=== PATIENT | male | born 1995 | race Two or more races ===

== ENCOUNTER 2019-12-01 13:11 | Emergency (ER) | payer BC ==
--- NOTE | 2019-12-01 13:39 | UC ---
Lower Extremity/Ankle HPI - HPI Summary HPI Summary: 24 yo male presents with cough. He tells me that for the past 2 months he has had a dry cough. 3 days ago he had body aches and felt very tired with increased cough and post nasal drip. This lasted for 24 hours and resolved, but dry cough persists. 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 Nothing OTC for symptoms. Denies known contact with positive COVID. Denies fever, sinus symptoms, sore throat, SOB, chest pain, abdominal pain, n/v. - History of Current Complaint Stated Complaint: NEEDS WORK NOTE Time Seen by Provider: 12/01/19 13:37 Hx Obtained From: Patient Onset/Duration: Sudden Onset Severity Initially: Mild Severity Currently: Mild Pain Intensity: 2 Pain Scale Used: 0-10 Numeric - Allergies/Home Medications Allergies/Adverse Reactions: Allergies Allergy/AdvReac Type Severity Reaction Status Date / Time No Known Allergies Allergy Verified 12/01/19 13:44 Home Medications: Home Medications Omeprazole 20 mg PO DAILY 06/26/19 [History Confirmed 06/26/19] PMH/Surg Hx/FS Hx/Imm Hx - Additional Past Medical History Additional PMH: Anderson's esophagus - Surgical History Surgical History: None - Family History Known Family History: Positive: None - Social History Occupation: Employed Full-time Lives: With Family Alcohol Use: Weekly Alcohol Amount: 3-4 DRINKS PER WEEK Substance Use Type: None Smoking Status (MU): Never Smoked Tobacco Review of Systems All Other Systems Reviewed And Are Negative: No Constitutional: Positive: Negative Skin: Positive: Negative Eyes: Positive: Negative ENT: Positive: Negative Respiratory: Positive: Cough Cardiovascular: Positive: Negative Gastrointestinal: Positive: Negative Physical Exam - Summary Physical Exam Summary: GENERAL: NAD. WDWN. No pain distress. SKIN: No rashes, sores, lesions, or open wounds. HEENT: Head: AT/NC Eyes: EOM intact. Conjunctiva clear without inflammation or discharge. Ears: Hearing grossly normal. TMs intact, no bulging, erythema, or edema. Nose: Nasal mucosa pink and moist. NTTP maxillary and frontal sinus. Throat: Posterior oropharynx without exudates, erythema, or tonsillar enlargement. Uvula midline. NECK: Supple. Nontender. No lymphadenopathy. CHEST: CTAB. No r/r/w. No accessory muscle use. Breathing comfortably and in no distress. CV: RRR. Pulses intact. Cap refill <2seconds NEURO: Alert. PSYCH: Age appropriate behavior. Triage Information Reviewed: Yes Vital Signs: Vital Signs: Temp Pulse Resp BP Pulse Ox 98.1 F 77 18 145/82 97 12/01/19 14:35 12/01/19 14:35 12/01/19 14:35 12/01/19 14:35 12/01/19 14:35 Laboratory Tests 12/01/19 14:13 Influenza A (Rapid) Negative Influenza B (Rapid) Negative Vital Signs Reviewed: Yes Lower Extremity Course/Dx - Course Course Of Treatment: POC flu negative. Exam performed utilizing CDC recommended PPE. You are being tested for COVID-19. You need to quarantine yourself in a bedroom and bathroom only you are using. You may not leave the house. TC will contact you and notify of results when they are available. Advised to be on home isolation until cleared by the health department. Go to ED for increased SOB or any difficulty breathing - new or worsening symptoms. - Differential Dx/Diagnosis Provider Diagnosis: Cough Discharge ED - Sign-Out/Discharge Documenting (check all that apply): Patient Departure All imaging exams completed and their final reports reviewed: No Studies - Discharge Plan Condition: Stable Disposition: HOME Forms: COVID-19 Tested & Isolation Referrals: No Primary Care Phys,NOPCP [Primary Care Provider] - Additional Instructions: You are being tested for COVID-19. You need to quarantine yourself in a bedroom and bathroom only you are using. You may not leave the house. TC will contact you and notify of results when they are available. Advised to be on home isolation until cleared by the health department. Go to ED for increased SOB or any difficulty breathing - new or worsening symptoms. - Billing Disposition and Condition Condition: STABLE Disposition: Home - Attestation Statements Provider Attestation: This patient was not seen by me. I was available for consult. Chart reviewed. ZEKE
[2019-12-01 14:25] LABS: Influenza A Molecular Negative (Negative); Influenza B Molecular Negative (Negative)
[2019-12-01 14:36] VITALS: BP 145/82
== END 2019-12-01 14:42 | disposition home or self-care (01) ==
LOC: UCEAST 13:11
DX: R05 Cough (principal); Z20.828 Contact with and (suspected) exposure to other viral communicable diseases; K22.70 Barrett's esophagus without dysplasia; Z79.899 Other long term (current) drug therapy
CPT/HCPCS: 99211; G0463; U0002